=== PATIENT | male | born 2005 | race Two or more races ===

== ENCOUNTER 2023-06-25 22:00 | Emergency (ER) | payer SELFPAY ==
[~2023-06-25] VITALS: Ht 170.2 cm; Wt 63.2 kg
[2023-06-25 22:23] VITALS: BP 129/68; PULSE 92; RESP 16; TEMP 98.3; O2SAT 100
== END 2023-06-25 22:46 | disposition home or self-care (01) ==
LOC: ER 22:01
DX: F10.129 Alcohol abuse with intoxication, unspecified (principal); Y90.9 Presence of alcohol in blood, level not specified
CPT/HCPCS: 99283

== ENCOUNTER 2024-02-11 11:47 | Emergency (ER) | payer OTHER ==
[~2024-02-11] VITALS: Ht 170.2 cm; Wt 64.4 kg
[2024-02-11 11:52] VITALS: BP 143/55; PULSE 60; RESP 16; TEMP 98.3; O2SAT 100
[2024-02-11 12:30] LABS: STREP A SCREEN POSITIVE (Neg)
[2024-02-11] MEDS ORDERED: penicillin V potassium 500mg tablet PO ONE (14:25)
[2024-02-11] MEDS ORDERED: AMOX500C4 PO (14:30)
[2024-02-11] MEDS: amoxicillin 250mg capsule PO ONE (14:42)
[2024-02-11] MEDS: dexamethasone 4mg/ml inj PO ONE (14:43)
[2024-02-11] MEDS ORDERED: AMOX-100 PO (15:14)
== END 2024-02-11 15:29 | disposition home or self-care (01) ==
LOC: ER 11:47
DX: J02.9 Acute pharyngitis, unspecified (principal); Z91.018 Allergy to other foods; Z91.09 Other allergy status, other than to drugs and biological substances
CPT/HCPCS: 87880; 99283; J1100